=== PATIENT | female | born 2000 | race Caucasian/White ===

== ENCOUNTER 2018-07-22 13:02 | Emergency (ER) | payer OTHER ==
[~2018-07-22] VITALS: Ht 165.1 cm; Wt 108.4 kg
[2018-07-22 13:12] VITALS: BP 130/87
--- NOTE | 2018-07-22 13:25 | NUR ---
PATIENT AMB WITH STEADY GAIT TO BED 8
[2018-07-22] MEDS ORDERED: KETOROLAC 30 MG/ML VIAL IVP ONE (13:30)
--- NOTE | 2018-07-22 13:30 | NUR ---
PT C/O UPPER ABD PAIN X2 DAYS. REPORTS 5/10 BURNING PAIN AND VOMITING ALSO C/O URINARY SX'S, REPORTS UNPROTECTED SEX, WAS PREV SEEN BY PCP, PAIN IS UNRESOLVED AFTER TAKING ABX.
[2018-07-22 14:14] LABS: BASOPHILS # (AUTO) 0.1 K/uL (0.00-0.22); BASOPHILS % (AUTO) 0.7 % (0.0-2.0); EOSINOPHILS # (AUTO) 0.1 K/uL (0-0.4); EOSINOPHILS % (AUTO) 0.9 % (0.0-4.0); HEMATOCRIT 46.4 % (36-48); HEMOGLOBIN 15.4 g/dL (12.0-16.0); LYMPHOCYTES % (AUTO) 20.4 % (20.5-51.1); MEAN CORPUSCULAR HEMOGLOBIN 30 pg (27-31); MEAN CORPUSCULAR HGB CONC 33 g/dL (33-37); MEAN CORPUSCULAR VOLUME 90.4 fL (80-94); MONOCYTES # (AUTO) 0.7 K/uL (0.8-1.0); MONOCYTES % (AUTO) 6.9 % (1.7-9.3); NEUTROPHILS % (AUTO) 71.1 % (42.2-75.2); PLATELET COUNT (AUTO) 278 K/uL (140-450); RED BLOOD CELL COUNT(AUTO) 5.13 MIL/uL (4.20-5.40); RED CELL DISTRIBUTION WIDTH 13.4 % (11.6-13.7); WHITE BLOOD COUNT (AUTO) 9.9 K/uL (4.5-11.0)
[2018-07-22 14:24] LABS: ANION GAP 14.5 (8-16); CARBON DIOXIDE 29.2 mmol/L (21-32); CREATININE 0.7 mg/dL (0.6-1.3); POTASSIUM 3.7 mmol/L (3.5-5.1)
[2018-07-22 14:27] LABS: APPEARANCE,URINE SL CLOUDY (CLEAR); BILIRUBIN,URINE NEGATIVE (NEGATIVE); BLOOD, URINE TRACE-I (NEGATIVE); COLOR,URINE YELLOW (YELLOW); LEUKOCYTE ESTERASE ,URINE 3+ (NEGATIVE); NITRITE, URINE NEGATIVE (NEGATIVE); PH,URINE 6.5 (5.0-9.0); UGLUCOSE NEGATIVE (NEGATIVE)
[2018-07-22 14:29] LABS: RBC,URINE 11-20 (MOD) /HPF (0-5); WBC,URINE TOO MANY TO COUNT /HPF (0-5)
[2018-07-22 14:30] LABS: ALBUMIN 4.6 g/dL (3.4-5.0); TOTAL BILIRUBIN 0.4 mg/dL (0.0-1.0)
[2018-07-22 15:37] VITALS: BP 130/87
--- NOTE | 2018-07-22 15:38 | NUR ---
Patient discharged with v/s stable. Written and verbal after care instructions given and explained. Patient alert, oriented and verbalized understanding of instructions. Ambulatory with steady gait. All questions addressed prior to discharge. ID band removed. Patient advised to follow up with PMD. Rx of ZOFRAN, PRILOSEC, MOTRIN, AND CIPRO given. Patient educated on indication of medication including possible reaction and side effects. Opportunity to ask questions provided and answered.
== END 2018-07-22 15:38 | disposition home or self-care (01) ==
LOC: MED 13:02
DX: N39.0 Urinary tract infection, site not specified (principal)
CPT/HCPCS: 36415; 80053; 81001; 81025; 83690; 85025; 87086; 96374; 99283; J1885

== ENCOUNTER 2019-06-17 20:54 | Emergency (ER) | payer OTHER ==
[~2019-06-17] VITALS: Ht 162.6 cm; Wt 115.7 kg
[2019-06-17 21:23] VITALS: BP 133/85
--- NOTE | 2019-06-17 22:00 | NUR ---
PATIENT ASSESSMENT COMPLETED AT THIS TIME. PATIENT SITTING UP IN CHAIR. NO NEEDS ADDRESSED AT THIS TIME.
[2019-06-17] MEDS ORDERED: PENICILLIN G BENZATHINE L-A 1.2 MU/2 ML SYR IM ONE (22:05)
[2019-06-17] MEDS ORDERED: KETOROLAC 30 MG/ML VIAL IM ONE (22:05)
--- NOTE | 2019-06-17 22:25 | NUR ---
Patient discharged with v/s stable. Written and verbal after care instructions given and explained. Patient alert, oriented and verbalized understanding of instructions. Ambulatory with steady gait. All questions addressed prior to discharge. ID band removed. Patient advised to follow up with PMD. Rx of PREDNISONE, IBUPROFEN given. Patient educated on indication of medication including possible reaction and side effects. Opportunity to ask questions provided and answered.
[2019-06-17 22:30] VITALS: BP 133/85
== END 2019-06-17 22:25 | disposition home or self-care (01) ==
LOC: MED 20:54
DX: J02.0 Streptococcal pharyngitis (principal)
CPT/HCPCS: 96372; 99283; J0561; J1885

== ENCOUNTER 2021-12-15 14:28 | Emergency (ER) | payer OTHER ==
[~2021-12-15] VITALS: Ht 165.1 cm; Wt 103.0 kg
[2021-12-15 14:48] VITALS: BP 120/62
[2021-12-15] MEDS ORDERED: DICYCLOMINE HCL LIQUID 20 MG, ALUMINUM HYD/MAG/SIMETHICONE 30 ML, LIDOCAINE VISCOUS 2% ... PO ONE ×3 (15:30)
[2021-12-15 15:58] LABS: BASOPHILS # (AUTO) 0.1 K/uL (0.00-0.22); BASOPHILS % (AUTO) 0.6 % (0.0-2.0); EOSINOPHILS # (AUTO) 0.1 K/uL (0-0.4); EOSINOPHILS % (AUTO) 0.7 % (0.0-4.0); HEMATOCRIT 39.5 % (36-48); HEMOGLOBIN 13.1 g/dL (12.0-16.0); LYMPHOCYTES # (AUTO) 2.4 K/uL (2.5-16.5); LYMPHOCYTES % (AUTO) 27.3 % (20.5-51.1); MEAN CORPUSCULAR HEMOGLOBIN 30 pg (27-31); MEAN CORPUSCULAR HGB CONC 33 g/dL (33-37); MEAN CORPUSCULAR VOLUME 89.5 fL (80-94); MONOCYTES # (AUTO) 0.5 K/uL (0.8-1.0); MONOCYTES % (AUTO) 5.5 % (1.7-9.3); NEUTROPHILS # (AUTO) 5.9 K/uL (1.8-7.7); NEUTROPHILS % (AUTO) 65.9 % (42.2-75.2); PLATELET COUNT (AUTO) 334 K/uL (140-450); RED BLOOD CELL COUNT(AUTO) 4.41 MIL/uL (4.20-5.40)
[2021-12-15] MEDS ORDERED: DICYCLOMINE HCL LIQUID 10 MG/5 ML UDC ONE (16:06)
[2021-12-15] MEDS ORDERED: ALUMINUM HYD/MAG/SIMETHICONE 30 ML UDC ONE (16:06)
[2021-12-15 16:17] LABS: ANION GAP 11.3 (8-16); CARBON DIOXIDE 27.7 mmol/L (21-32); CREATININE 0.8 mg/dL (0.6-1.3); TOTAL BILIRUBIN 0.3 mg/dL (0.0-1.0)
[2021-12-15] MEDS ORDERED: NACL 0.9% 2,000 ML IV ONE (17:35)
--- NOTE | 2021-12-15 17:59 | NUR ---
21 Y/O FEMALE BIB SELF C/O ABDOMINAL PAIN THAT WORSENS WHEN EATING X 1 WEEK. ENDORSES NAUSEA, CONSTIPATION. LAST BM TODAY. DENIES VOMITING. PAIN 8/10 BURING SENSATION. PT DENIES CHEST PIN, SOB. PT DENIES FEVER OR CHILLS. BED LOCKED IN LOWEST POSITION, BED RAILX1. PMH: PANCREATITIS, GERD MEDS: DENIES
[2021-12-15 18:13] LABS: APPEARANCE,URINE CLOUDY (CLEAR); BILIRUBIN,URINE 2+ (NEGATIVE); BLOOD, URINE 3+ (NEGATIVE); COLOR,URINE RED (YELLOW); LEUKOCYTE ESTERASE ,URINE 1+ (NEGATIVE); NITRITE, URINE POSITIVE (NEGATIVE); UGLUCOSE NEGATIVE (NEGATIVE)
[2021-12-15 18:15] LABS: RBC,URINE TOO NUMEROUS TO COUN /HPF (0-5); WBC,URINE 60-80 /HPF (0-5)
[2021-12-15] MEDS ORDERED: MAG-27 PO ×2 (18:39→22:46)
[2021-12-15] MEDS ORDERED: ACET-8386 PO ×2 (18:39→22:46)
[2021-12-15] MEDS ORDERED: NITR100C7 PO ×2 (18:42→22:46)
--- NOTE | 2021-12-15 18:54 | NUR ---
Patient appears to be resting comfortably in bed. Vital Signs within normal limits. Respirations even and unlabored.
[2021-12-15 19:09] VITALS: BP 109/60
--- NOTE | 2021-12-15 19:12 | NUR ---
Patient discharged with v/s stable. Written and verbal after care instructions given and explained. Patient alert, oriented and verbalized understanding of instructions. Ambulatory with steady gait. All questions addressed prior to discharge. ID band removed. Patient advised to follow up with PMD. Rx of HYDROCODONE, MYLANTA, MACROBID given. Patient educated on indication of medication including possible reaction and side effects. Opportunity to ask questions provided and answered.
== END 2021-12-15 19:12 | disposition home or self-care (01) ==
LOC: MED 14:28
DX: K85.90 Acute pancreatitis without necrosis or infection, unspecified (principal); K21.9 Gastro-esophageal reflux disease without esophagitis; F17.210 Nicotine dependence, cigarettes, uncomplicated; Z79.899 Other long term (current) drug therapy; Z71.6 Tobacco abuse counseling
CPT/HCPCS: 36415; 80053; 81001; 81025; 83690; 85025; 87086; 96360; 99283; J7030

== ENCOUNTER 2022-01-06 18:05 | Emergency (ER) | payer MEDICAID, OTHER ==
[~2022-01-06] VITALS: Ht 165.1 cm; Wt 103.1 kg
[~2022-01-06 18:05] MED LIST: ACET-8386 PO; MAG-27 PO; NITR100C7 PO
[2022-01-06 18:16] VITALS: BP 100/66
[2022-01-06] MEDS ORDERED: ONDANSETRON 4 MG ODT PO ONE (20:05)
[2022-01-06] MEDS ORDERED: ALUMINUM HYD/MAG/SIMETHICONE 30 ML, DICYCLOMINE HCL LIQUID 20 MG, LIDOCAINE VISCOUS 2% ... PO ONE ×3 (20:05)
--- NOTE | 2022-01-06 20:05 | NUR ---
Dr. Andrea examining patient.
[2022-01-06] MEDS ORDERED: ALUMINUM HYD/MAG/SIMETHICONE 30 ML UDC ONE (20:18)
[2022-01-06] MEDS ORDERED: DICYCLOMINE HCL LIQUID 10 MG/5 ML UDC ONE (20:18)
--- NOTE | 2022-01-06 20:18 | NUR ---
Blood for labwork drawn from right arm per phelbotomist. Patient tolerated well.
[2022-01-06 20:27] LABS: BASOPHILS # (AUTO) 0.1 K/uL (0.00-0.22); BASOPHILS % (AUTO) 0.5 % (0.0-2.0); EOSINOPHILS # (AUTO) 0.1 K/uL (0-0.4); EOSINOPHILS % (AUTO) 1.3 % (0.0-4.0); HEMATOCRIT 39.8 % (36-48); HEMOGLOBIN 13.1 g/dL (12.0-16.0); LYMPHOCYTES # (AUTO) 2.9 K/uL (2.5-16.5); LYMPHOCYTES % (AUTO) 25.8 % (20.5-51.1); MEAN CORPUSCULAR HEMOGLOBIN 29 pg (27-31); MEAN CORPUSCULAR HGB CONC 33 g/dL (33-37); MEAN CORPUSCULAR VOLUME 89.5 fL (80-94); MONOCYTES # (AUTO) 0.7 K/uL (0.8-1.0); MONOCYTES % (AUTO) 6.5 % (1.7-9.3); NEUTROPHILS # (AUTO) 7.3 K/uL (1.8-7.7); NEUTROPHILS % (AUTO) 65.9 % (42.2-75.2); PLATELET COUNT (AUTO) 303 K/uL (140-450); RED BLOOD CELL COUNT(AUTO) 4.45 MIL/uL (4.20-5.40); RED CELL DISTRIBUTION WIDTH 13.8 % (11.6-13.7)
[2022-01-06 21:05] LABS: ALBUMIN 3.8 g/dL (3.4-5.0); ANION GAP 12.4 (8-16); CARBON DIOXIDE 28.5 mmol/L (21-32); CREATININE 0.8 mg/dL (0.6-1.3); POTASSIUM 3.9 mmol/L (3.5-5.1); TOTAL BILIRUBIN 0.2 mg/dL (0.0-1.0)
--- NOTE | 2022-01-06 21:34 | NUR ---
Dr. Andrea explained results and treatment plans.
[2022-01-06] MEDS ORDERED: MAG-27 PO (21:41)
[2022-01-06] MEDS ORDERED: TRAM50TA3 PO (21:41)
[2022-01-06] MEDS ORDERED: ONDA-188 SL (21:41)
[2022-01-06 21:57] VITALS: BP 112/66
--- NOTE | 2022-01-06 21:57 | NUR ---
Patient discharged with v/s stable. Written and verbal after care instructions given and explained fro abdominal pain and pancreatitis. Patient alert, oriented and verbalized understanding of instructions. Ambulatory with steady gait. All questions addressed prior to discharge. ID band removed. Patient advised to follow up with PMD. Rx of Zofran, Tramadol and Mylanta given. Patient educated on indication of medication including possible reaction and side effects. Opportunity to ask questions provided and answered.
== END 2022-01-06 21:57 | disposition home or self-care (01) ==
LOC: MED 18:05
DX: K29.70 Gastritis, unspecified, without bleeding (principal); K85.90 Acute pancreatitis without necrosis or infection, unspecified
CPT/HCPCS: 36415; 80053; 81002; 81025; 82150; 83690; 85025; 99283; Q0162